=== PATIENT | female | born 1950 | race Caucasian/White ===

== ENCOUNTER → 2020-03-31 | Emergency (ER) | payer BC ==
[~2020-03-31] VITALS: Ht 152.4 cm; Wt 81.2 kg
[~2020-03-31] MED LIST: ACETAMINOPHEN 325 MG TAB PO ONE; AMBIEN10 MG PO; ASPIR 8181 MG PO; CIPRO500 MG PO; CRESTOR10 MG PO; LANTUS100 UNITS/ SQ; LOSARTAN POTAS100 MG PO; METFORMIN HCL500 MG PO; MIRALAX PO; MOTRIN200 MG PO; MULTIVITAMINS1 EAC8 PO; NAPROXEN500 MG PO; PANTOPRAZOLE SO40 MG PO; TRILIPIX135 MG PO; TRUJEO SC; ULTRAM50 MG PO; VENTOLIN HFA18 GM INH; VERAPAMIL ER180 M1 PO; VITAMIN D350000 UNIT PO; XIGDUO XR PO; ZANTAC150 MG PO
--- NOTE | 2020-03-31 20:56 | Emergency Department Note ---
History of Present Illnes History of Present Illness Chief Complaint: 69 yof suffered a mechanical fall in the ICU and fell onto the r side of her face. Denies LOC History of Present Illness This is a 69 year old female . 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 Any updates have been documented here. Past Medical History Recent Fever: No Clinical Suspicion of Infectio: No New/Unexplained Change in Ment: No Past Medical History: Hypertension Other Medical History: high cholesterol; high trigylercides; Other Surgery: r and l rotator; bilateral knees; nephrectomy left Social History Smoking Cessation: Never Smoker Alcohol Use: None Any Illegal Drug Use: No Other Last Tetanus: UTD Review of Systems Review of Systems Constitutional: Reports no symptoms EENTM: Reports eye pain Cardiovascular: Reports no symptoms Respiratory: Reports no symptoms Gastrointestinal: Reports no symptoms Genitourinary: Reports no symptoms Musculoskeletal: Reports no symptoms Integumentary: Reports no symptoms Neurological: Reports no symptoms Psychological: Reports no symptoms Endocrine: Reports no symptoms Hematological/Lymphatic: Reports no symptoms Physical Exam Related Data Allergies: Coded Allergies: FENG Inhibitors (Verified Allergy, Unknown, 07/25/16) clarithromycin (Verified Allergy, Unknown, 07/25/16) codeine (Verified Allergy, Unknown, 07/25/16) hydromorphone (Verified Allergy, Unknown, 07/25/16) morphine (Verified Allergy, Unknown, 07/25/16) Triage Vital Signs Vital Signs Date Time Temp Pulse Resp B/P (MAP) Pulse Ox O2 Delivery O2 Flow Rate FiO2 03/31/20 20:45 98.1 74 18 161/104 100 Vital signs reviewed: Yes Physical Exam CONSTITUTIONAL Constitutional: Present well-developed, Present well-nourished HENT HENT: Present normocephalic, Present atraumatic, Present oropharynx clear/moist, Present nose normal HENT L/R: Present left ext ear normal, Present right ext ear normal EYES Eyes: Reports other NECK Neck: Present ROM normal PULMONARY Pulmonary: Present effort normal, Present breath sounds normal CARDIOVASCULAR Cardiovascular: Present regular rhythm, Present heart sounds normal, Present capillary refill normal, Present normal rate GASTROINTESTINAL Abdominal: Present soft, Present nontender, Present bowel sounds normal GENITOURINARY Genitourinary: Present exam deferred SKIN Skin: Present other (R supraorbital pain and contusion. Anasciorra) MUSCULOSKELETAL Musculoskeletal: Present ROM normal NEUROLOGICAL Neurological: Present alert, Present oriented x 3, Present no gross motor or sensory deficits PSYCHOLOGICAL Psychological: Present mood/affect normal, Present judgement normal Results Imaging Imaging results reviewed: Yes Impressions [facility] [address] [place] [address] Patient Name: BRYAN BROWN MR #: [id number] : 1950 Age/Sex: 69/F Req #: [id number] Adm Physician: Ordered by: ELIZABETH VERNON DO Report #: [id number] Location: ER Room/Bed: Procedure: [id number] CT/CT MAXIO FAC/FERNANDO WO Exam Date: 03/31/20 Exam Time: 2049 REPORT STATUS: Signed CT MAXIO FAC/PARANAS WO HISTORY: Trauma COMPARISON: Concurrent head CT TECHNIQUE: Axial CT images through the face were obtained without contrast. Coronal/sagittal reformations were created. One or more of the following dose reduction techniques were used: Automated exposure control, adjustment of the mA and/or kV according to patient size, and/or utilization of iterative reconstruction technique. DISCUSSION: Superficial right supraorbital hematoma is associated with mild right premaxillary subcutaneous edema. Mildly displaced/depressed fracture of the right orbital floor involves the right infraorbital groove and is associated with mild hemorrhagic opacification of the right maxillary sinus. The right inferior rectus muscle slightly protrudes into the fracture defect along with orbital fat. The orbits are otherwise intact. Intraorbital contents are otherwise grossly unremarkable. No other acute fracture is seen. There are mild to moderate degenerative changes throughout the spine. There is minimal mucosal thickening in the left maxillary sinus. Otherwise, the visualized soft tissues and intracranial compartment are grossly unremarkable. IMPRESSION: 1. Mildly displaced/depressed right orbital floor fracture. The right inferior rectus muscle slightly protrudes into the fracture defect. 2. No other acute osseous abnormalities in the face. Signed by: Dr. Dwayne Rae M.D. on 03/31/2020 9:44 PM Dictated By: DWAYNE RAE MD 43 Transcribed By: JUDITH on 03/31/202143 COPY TO: ELIZABETH VERNON DO~ [place] [address] Patient Name: BRYAN BROWN MR #: [id number] : 1950 Age/Sex: 69/F Req #: [id number] Adm Physician: Ordered by: ELIZABETH VERNON DO Report #: [id number] Location: ER Room/Bed: Procedure: [id number] CT/CT BRAIN WO Exam Date: 03/31/20 Exam Time: 2049 REPORT STATUS: Signed CT BRAIN WO HISTORY: Trauma COMPARISON: Head CT 07/25/2016 Technique: Noncontrast axial scans were obtained from skull base to the vertex. Coronal and sagittal reconstructions obtained from the axial data. One or more of the following dose reduction techniques were used: Automated exposure control, adjustment of the mA and/or kV according to patient size, and/or utilization of iterative reconstruction technique. DISCUSSION: Scalp/Skull: Right frontal scalp/supraorbital hematoma is present. No calvarial fracture. Brain sulci: Mildly prominent. Ventricles: Normal in size and configuration. Extra-axial spaces: No masses or fluid collections. Carotid siphon calcifications are present. Parenchyma: Mild to moderate bilateral deep white matter hypodensity is likely chronic microvascular ischemic change. Possible small right choroidal fissure cyst. Otherwise, no masses, hemorrhage, or large vascular territory acute infarct. Dural sinuses: No abnormal densities. Sellar/Suprasellar region: Intact. Skull base: Intact. Incidental findings: None. IMPRESSION: 1. No acute intracranial abnormalities. 2. Mild to moderate supratentorial chronic microvascular ischemic change. Signed by: Dr. Dwayne Rae M.D. on 03/31/2020 9:35 PM Dictated By: DWAYNE RAE MD 34 Transcribed By: JUDITH on 03/31/202134 COPY TO: ELIZABETH VERNON DO~ Assessment & Plan Medical Decision Making MDM Diff Dx : orbital blowout fx. Supraorbital fx. Skull fx, retinal detachment, EOM entrapment, SAH, SDH, epidural hematoma Assessment & Plan Final Impression: (1) Fracture of right orbital floor Depart Disposition: HOME, SELF-CARE Last Vital Signs Date Time Temp Pulse Resp B/P (MAP) Pulse Ox O2 Delivery O2 Flow Rate FiO2 03/31/20 22:47 73 16 97 03/31/20 20:45 98.1 161/104 Home Meds Reported Medications Tramadol Hcl (ULTRAM) 50 Mg Tablet, 50 MG PO Q6H PRN for PAIN, #30 TAB 07/25/16 Ibuprofen (MOTRIN) 200 Mg Tab, 400 MG PO Q6H for PAIN, #20 TAB 07/25/16 [Trujeo] No Conflict Check, 35 SC HS 07/25/16 [Xigduo Xr] No Conflict Check, PO BID 01/03/16 Pantoprazole Sodium* (PROTONIX) 40 Mg Tablet.dr, 40 MG PO BID, TAB 06/22/15 Verapamil Hcl (VERAPAMIL ER) 180 Mg Cap24h.pel, 180 MG PO DAILY 06/27/14 Fenofibric Acid (Choline) (TRILIPIX) 135 Mg Capsule.dr, 135 MG PO DAILY 06/27/14 Rosuvastatin Calcium (CRESTOR) 10 Mg Tab, 10 MG PO DAILY 06/27/14 Multivitamin (MULTIVITAMINS) 1 Each Tablet, PO DAILY 06/27/14 [Miralax] No Conflict Check, PO PRN 06/27/14 Aspirin (ASPIR 81) 81 Mg Tablet.dr, 325 MG PO DAILY 06/27/14 Losartan Potassium (LOSARTAN POTASSIUM) 100 Mg Tablet, 100 MG PO DAILY, TAB 06/27/14 ELIZABETH VERNON DO Mar 31, 2020 20:56
--- NOTE | 2020-03-31 21:39 | Diagnostic Imaging Report ---
CT BRAIN WO HISTORY: Trauma COMPARISON: Head CT 07/25/2016 Technique: Noncontrast axial scans were obtained from skull base to the vertex. Coronal and sagittal reconstructions obtained from the axial data. One or more of the following dose reduction techniques were used: Automated exposure control, adjustment of the mA and/or kV according to patient size, and/or utilization of iterative reconstruction technique. DISCUSSION: Scalp/Skull: Right frontal scalp/supraorbital hematoma is present. No calvarial fracture. Brain sulci: Mildly prominent. Ventricles: Normal in size and configuration. Extra-axial spaces: No masses or fluid collections. Carotid siphon calcifications are present. Parenchyma: Mild to moderate bilateral deep white matter hypodensity is likely chronic microvascular ischemic change. Possible small right choroidal fissure cyst. Otherwise, no masses, hemorrhage, or large vascular territory acute infarct. Dural sinuses: No abnormal densities. Sellar/Suprasellar region: Intact. Skull base: Intact. Incidental findings: None. IMPRESSION: 1. No acute intracranial abnormalities. 2. Mild to moderate supratentorial chronic microvascular ischemic change. Signed by: Dr. Dwayne Sutton M.D. on 03/31/2020 9:35 PM
--- NOTE | 2020-03-31 21:47 | Diagnostic Imaging Report ---
CT MAXIO FAC/PARANAS WO HISTORY: Trauma COMPARISON: Concurrent head CT TECHNIQUE: Axial CT images through the face were obtained without contrast. Coronal/sagittal reformations were created. One or more of the following dose reduction techniques were used: Automated exposure control, adjustment of the mA and/or kV according to patient size, and/or utilization of iterative reconstruction technique. DISCUSSION: Superficial right supraorbital hematoma is associated with mild right premaxillary subcutaneous edema. Mildly displaced/depressed fracture of the right orbital floor involves the right infraorbital groove and is associated with mild hemorrhagic opacification of the right maxillary sinus. The right inferior rectus muscle slightly protrudes into the fracture defect along with orbital fat. The orbits are otherwise intact. Intraorbital contents are otherwise grossly unremarkable. No other acute fracture is seen. There are mild to moderate degenerative changes throughout the spine. There is minimal mucosal thickening in the left maxillary sinus. Otherwise, the visualized soft tissues and intracranial compartment are grossly unremarkable. IMPRESSION: 1. Mildly displaced/depressed right orbital floor fracture. The right inferior rectus muscle slightly protrudes into the fracture defect. 2. No other acute osseous abnormalities in the face. Signed by: Dr. Dwayne Sutton M.D. on 03/31/2020 9:44 PM
[2020-03-31 22:47] VITALS: BP 158/96
== END | disposition home or self-care (01) ==
LOC: ER 20:45
DX: S02.31XA Fracture of orbital floor, right side, initial encounter for closed fracture (principal); W01.0XXA Fall on same level from slipping, tripping and stumbling without subsequent striking against object, initial encounter; Y93.01 Activity, walking, marching and hiking; Y92.238 Other place in hospital as the place of occurrence of the external cause; E11.65 Type 2 diabetes mellitus with hyperglycemia; E78.5 Hyperlipidemia, unspecified
CPT/HCPCS: 36415; 70450; 70486; 82948; 99283

== ENCOUNTER → 2020-10-10 | Outpatient (CLI) | payer OTHER ==
[~2020-10-10] MED LIST changes: -ACETAMINOPHEN 325 MG TAB PO ONE; +COVID-19 VACC, MRNA(MODERNA)/PF 100 MCG/0.5 ML VIAL IM ONE
== END ==
LOC: VACCPMC 13:41
DX: Z23 Encounter for immunization (principal); Z20.828 Contact with and (suspected) exposure to other viral communicable diseases

== ENCOUNTER → 2020-11-13 | Outpatient (CLI) | payer OTHER | END | DRG 951 | LOC: VACCPMC 10:04 | DX: Z23 Encounter for immunization (principal); Z20.822 Contact with and (suspected) exposure to COVID-19 | CPT/HCPCS: 0012A; 91301 ==

== ENCOUNTER → 2021-03-29 | Day surgery (SDC) | payer OTHER, MEDICARE ==
[2021-03-27 15:17] LABS: BASOPHILS # (AUTO) 0.1 (0.0-0.1); BASOPHILS % 0.9 % (0.0-1.0); EOSINOPHILS # (AUTO) 0.3 (0.0-0.4); HEMATOCRIT 40.3 % (34.2-44.1); LYMPHOCYTES # (AUTO) 2.2 (1.0-3.2); LYMPHOCYTES % 24.9 % (18.0-39.1); MEAN CORPUSCULAR HEMOGLOBIN 27.5 pg (28-32); MEAN CORPUSCULAR HGB CONC 32.3 g/dL (31-35); MEAN CORPUSCULAR VOLUME 85.4 fL (81-99); MONOCYTES # (AUTO) 0.6 (0.2-0.8); MONOCYTES % 6.3 % (4.4-11.3); NEUTROPHILS # (AUTO) 5.8 (2.1-6.9); NEUTROPHILS % 64.6 % (38.7-80.0); PLATELET COUNT 292 x10e3/uL (140-360); RED BLOOD COUNT 4.72 x10e6/uL (3.6-5.1); RED CELL DISTRIBUTION WIDTH 14.6 % (11.7-14.4)
[~2021-03-29] MED LIST changes: +ALLEGRA ALLERGY60 MG PO; -COVID-19 VACC, MRNA(MODERNA)/PF 100 MCG/0.5 ML VIAL IM ONE; +DEXTROSE 5% 250ML 250 ML IV ONE; +FENTANYL CITRATE/PF 100MCG/2 ML INJ ONE; +HYOSCYAMINE SULFATE 0.5 MG/ML INJ ONE; +LIDOCAINE HCL 2% LOCAL INJ 5 ML SDV VIAL INJ ONE; +MAGNESIUM PO; +MELOXICAM7.5 MG PO; +MIDAZOLAM HCL 2 MG/2 ML VIAL ONE; +PROPOFOL IV EMULSION 10 MG/ML 20 ML VIAL ONE; +SYNJARDY XR 121 EACH PO; +TRESIBA100 UNIT/1 SQ
[2021-03-29 14:15] VITALS: BP 140/71
== END | disposition home or self-care (01) ==
LOC: ENDO 09:45
PROVIDERS: ATTEND Internal Medicine Gastroenterology
DX: K20.90 Esophagitis, unspecified without bleeding (principal); K29.70 Gastritis, unspecified, without bleeding; K63.89 Other specified diseases of intestine; R13.10 Dysphagia, unspecified; K21.9 Gastro-esophageal reflux disease without esophagitis; I10 Essential (primary) hypertension; Z68.31 Body mass index [BMI] 31.0-31.9, adult; Z86.010 Personal history of colon polyps; E11.9 Type 2 diabetes mellitus without complications; M19.90 Unspecified osteoarthritis, unspecified site; Z01.810 Encounter for preprocedural cardiovascular examination; Z01.812 Encounter for preprocedural laboratory examination
CPT/HCPCS: 36415 ×2; 43239; 43450; 82948; 85025; 93005; C9113; J1980; J2001; J2250; J2704; J3010; J7070